=== PATIENT | female | born 1955 | race Two or more races ===

== ENCOUNTER 2020-04-25 07:53 | Day surgery (SDC) | payer MEDICARE, BC ==
[~2020-04-25] VITALS: Ht 152.4 cm; Wt 68.9 kg
[2020-04-25] VITALS (7 sets, daily range): BP systolic 94–115; BP diastolic 51–87
[~2020-04-25 07:53] MED LIST: BUPROPION XL300 MG ORAL; FAMOTIDINE20 MG ORAL
[2020-04-25] MEDS ORDERED: LR 1000ml ONE (09:00)
[2020-04-25] MEDS ORDERED: Lidocaine 1% MPF 10mg/ml 5ml ONE (09:00)
--- NOTE | 2020-04-25 09:02 | Pre-Procedure Note/Attestation ---
Pre-Procedure Note/Attestation Complete Prior to Procedure Planned Procedure: not applicable Procedure Narrative: esophagogastroduodenoscopy colon Indications for Procedure Pre-Operative Diagnosis: [facility] Attestation I attest that I discussed the nature of the procedure; its benefits; risks and complications; and alternatives (and the risks and benefits of such alternatives ), prior to the procedure, with the patient (or the patient's legal artist's representative). I attest that, if there was a reasonable possibility of needing a blood transfusion, the patient (or the patient's legal artist's representative) was given the [facility] standardized written summary, pursuant to the [place] Blood Safety Act ([place] Health and Safety Code # 1645, as amended). I attest that I re-evaluated the patient just prior to the surgery and that there has been no change in the patient's H&P, except as documented below: Edilson Clarke MD Apr 25, 2020 09:02
--- NOTE | 2020-04-25 09:04 | Short Stay Surgery H&P ---
History of Present Illness History of Present Illness Chief Complaint [facility] UC HPI Yaima Swapna Hoyos is a 65 year old female who was admitted on for Ulcerative Colitis,Mejia's Esophagus Patient History Allergies: Coded Allergies: PENICILLINS (Verified Allergy, Unknown, "unknown", 04/24/20) ERYTHROMYCIN BASE (Verified Adverse Reaction, Intermediate, vertigo, ) Medication History Scheduled Bupropion Hcl* (Wellbutrin*), 300 MG ORAL DAILY, (Reported) Famotidine* (Pepcid 20mg tablet*), 40 MG ORAL DAILY, (Reported) Physical Exam Vital Signs Last Vital Signs Date Time Temp Pulse Resp B/P (MAP) Pulse Ox O2 Delivery O2 Flow Rate FiO2 04/25/20 08:32 97.3 75 18 101/69 96 Room Air Plan Attestation Are the patient's medical conditions optimized for surgery? Edilson Clarke MD Apr 25, 2020 09:04
--- NOTE | 2020-04-25 10:05 | Endoscopy Procedure Note ---
Endoscopy Procedure Note General Indication for Procedure: GERD, SSB, UC Procedures Performed: flexible sigmoidoscopy, EGD, colonoscopy Operative Findings/Diagnosis: s/p LINDA, 6 cm HH Specimen: yes Pt Tolerated Procedure Well: Yes Estimated Blood Loss: none Anesthesia Anesthesiologist: JASMINA Anesthesia: MAC, moderate sedation Medications Medication Given: see anesthesia record Inserted Devices Implant(s) used?: No GI Core Measures 50 yrs or older w/o bx or poly: No 10yrs. F/U recommended: No If not recommended, why?: Above average risk 18 years or older w/prev. colo: Yes <3yrs. since last colonoscopy: Yes Med reason:<3 yrs.: System Reason:<3 yrs.: Last colonoscopy >= to 3yrs: No Edilson Clarke MD Apr 25, 2020 10:05
--- NOTE | 2020-04-25 10:07 | Brief Operative Note ---
Immediate Post Operative Note Operative Note Chief Complaint: GERD SSB UC Pre-op Diagnosis: [facility] Procedure: esophagogastroduodenoscopy colon Post-op Diagnosis: LINDA SUGGS Proctitis Surgeon: chanelle Specimen: yes Complications: none Condition: stable Fluids: per anesthesia Estimated Blood Loss: none Drains: none Implant(s) used?: No Edilson Clarke MD Apr 25, 2020 10:07
--- NOTE | 2020-04-25 10:09 | Immediate Post-Op Evaluation ---
Immediate Post-Op Evalulation Immediate Post-Op Evalulation Procedure: EGD, colonoscopy Date of Evaluation: Apr 25, 2020 Time of Evaluation: 10:08 IV Fluids: 1000 Blood Pressure Systolic: 108 Blood Pressure Diastolic: 64 Pulse Rate: 73 Respiratory Rate: 14 O2 Sat by Pulse Oximetry: 99 Temperature (Fahrenheit): 97.5 Nausea: No Vomiting: No Patient Status: awake, reacts, patent Hydration Status: adequate Drug: none Marbella Alarcon CRNA Apr 25, 2020 10:09
--- NOTE | 2020-04-25 10:11 | Anethesia Preoperative Eval ---
Anesthesia Pre-op PMH/ROS General Date of Evaluation: Apr 25, 2020 Time of Evaluation: 09:05 Anesthesiologist: marcy ASA Score: ASA 2 Mallampati Score Class I : Soft palate, uvula, fauces, pillars visible Class II: Soft palate, uvula, fauces visible Class III: Soft palate, base of uvula visible Class IV: Only hard plate visible Mallampati Classification: Class II Surgeon: Lorri Diagnosis: u. colitis Surgical Procedure: EGD/Colonoscopy Anesthesia History: none Family History: no anesthesia problems Allergies: Coded Allergies: PENICILLINS (Verified Allergy, Unknown, "unknown", 04/24/20) ERYTHROMYCIN BASE (Verified Adverse Reaction, Intermediate, vertigo, ) Medications: see eMAR Patient NPO?: Yes NPO Date: Apr 25, 2020 NPO Time: 00:01 Past Medical History Cardiovascular: Denies: HTN, CAD, LA, valve dz, arrhythmia, other Pulmonary: Denies: asthma, COPD, HUNTER, other Gastrointestinal/Genitourinary: Reports: GERD, other - u. colitis; Denies: CRI, ESRD Neurologic/Psychiatric: Reports: depression/anxiety; Denies: dementia, CVA, TIA, other Endocrine: Denies: DM, hypothyroidism, steroids, other Hematology/Immune: Denies: anemia, DVT, bleeding disorder, other Musculoskeletal/Integumentary: Denies: OA, RA, DJD, DDD, edema, other PSxH Narrative: EGD/Colon; arm surgery Anesthesia Pre-op Phys. Exam Physician Exam Last Vital Signs Date Time Temp Pulse Resp B/P (MAP) Pulse Ox O2 Delivery O2 Flow Rate FiO2 04/25/20 08:32 97.3 75 18 101/69 96 Room Air Constitutional: NAD Neurologic: CN 2-12 intact Cardiovascular: RRR Respiratory: CTA Gastrointestinal: S/NT/ND Airway Exam Mallampati Classification 2 Mallampati Score: Class II MO: full ROM: full Dentures: no upper, no lower Anesthesia Pre-op A/P Studies Pre-op Studies: EKG - SR Risk Assessment & Plan Assessment: covid neg Plan: mac Status Change Before Surgery: No Pre-Antibiotics Drug: none Marbella Alarcon CRNA Apr 25, 2020 10:11
--- NOTE | 2020-04-25 12:01 | 48 Hour Post Anesthesia Eval ---
Post Anesthesia Evaluation Procedure: EGD, colonoscopy Date of Evaluation: Apr 25, 2020 Time of Evaluation: 12:01 Blood Pressure Systolic: 115 0: 68 Pulse Rate: 70 Respiratory Rate: 14 O2 Sat by Pulse Oximetry: 98 Airway: patent Nausea: No Vomiting: No Hydration Status: adequate Cardiopulmonary Status: stable Mental Status/LOC: patient returned to baseline Post-Anesthesia Complications: none Follow-up care needed: N/A Marbella Alarcon CRNA Apr 25, 2020 12:01
--- NOTE | 2020-04-27 04:00 | Procedure Note ---
DATE OF PROCEDURE: 04/25/2020 GASTROENTEROLOGY PROCEDURE REPORT PROCEDURE: Upper gastrointestinal endoscopy with enteroscopy and biopsy as well as colonoscopy and biopsy. SURGEON: Edilson Clarke M.D. ANESTHESIA: Please see the separate anesthesiologist notes for details. PRE-ENDOSCOPIC DIAGNOSES: 1. History of short-segment Mejia esophagus. 2. Ulcerative colitis, in remission. POST-ENDOSCOPIC DIAGNOSES: 1. Status post Rachna-en-Y gastric bypass surgery as expected. 2. A 10 cm gastric pouch with 6 centimeters with a hiatal hernia. 3. Slightly irregular Z-line, status post biopsy. 4. Normal terminal ileum to about 10 cm, status post biopsy. 5. Status post random biopsy throughout the colon at 10 centimeter intervals in 4 quadrants. 6. Inflammatory changes with erythema and erosions in the rectum consistent with proctitis. 7. Diminutive polyps in the distal transverse colon and descending colon, status post biopsy, removal. DESCRIPTION OF PROCEDURE: The procedure its risks, indications, alternatives, and possible complications were explained to the patient and informed consent was obtained. The patient was then sedated. A diagnostic upper endoscope was introduced through the oropharynx and advanced to the jejunum. The endoscope was then gradually withdrawn and mucosa examined carefully. Examination of the upper gastrointestinal mucosa revealed the Rachna-en-Y gastric bypass as expected. The gastric pouch was approximately 10 cm, but 6 centimeters of this appeared to be within the hiatal hernia. There were no ulcers or obvious short-segment Mejia's, but there was some irregularity of the Z-line which was biopsied. The endoscope was removed. The rectal exam was done and colonoscope was introduced in the rectum and advanced to the terminal ileum for about 10 cm. The colonoscope was then gradually withdrawn and mucosa examined carefully. Examination of colonic in the terminal ileum mucosa revealed proctitis for about a 7 or 8 centimeters. The remainder of the mucosa was without inflammation. In the transverse colon and the descending colon, some diminutive polyps versus pseudopolyps were noted and removed by biopsy forceps. Retroflexed view of the rectum was otherwise unremarkable. The colonoscope was removed. The patient was sent to the recovery in good condition. COMPLICATIONS: None. RECOMMENDATIONS: 1. Follow up biopsy results. 2. Outpatient followup. Edilson Clarke M.D. DR: APRIL JOB#: [id number] CC: VENTURA
== END 2020-04-25 10:50 | disposition home or self-care (01) ==
LOC: GAS 07:53
DX: K51.90 Ulcerative colitis, unspecified, without complications (principal); Z98.84 Bariatric surgery status; K44.9 Diaphragmatic hernia without obstruction or gangrene; K63.5 Polyp of colon; Z88.0 Allergy status to penicillin; K21.9 Gastro-esophageal reflux disease without esophagitis; F32.9 Major depressive disorder, single episode, unspecified; F41.9 Anxiety disorder, unspecified
CPT/HCPCS: 43239; 45380; 94003; J2704; J7120; U0002; 94150